=== PATIENT | female | born 1970 | race Caucasian/White ===

== ENCOUNTER 2016-09-06 07:51 | Emergency (ER) | payer MEDICAID, OTHER ==
--- NOTE | 2016-09-06 08:36 | UC ---
Respiratory Complaint HPI - HPI Summary HPI Summary: COUGH X 1 DAY + BODY ACHES, FATIGUE, FEVER, CHILLS, MILD NASAL CONGESTION , NO SORE THROAT - History of Current Complaint Chief Complaint: UCRespiratory Stated Complaint: COUGH, HEADACHE Time Seen by Provider: 09/06/16 08:04 Hx Obtained From: Patient Hx Last Menstrual Period: 09/03/16 Onset/Duration: Gradual Onset, Lasting Days - 1, Still Present Timing: Constant Severity Initially: Moderate Severity Currently: Moderate Character: Cough: Nonproductive Aggravating Factors: Exertion, Deep Breaths Alleviating Factors: Nothing Associated Signs And Symptoms: Positive: Fever, Chills, Nasal Congestion. Negative: Dyspnea, Pleuritic Chest Pain, Wheezing, Hemoptysis, Dizziness, Calf Pain, Calf Swelling, Edema, URI, Hoarseness, Sinus Discomfort - Allergies/Home Medications Allergies/Adverse Reactions: Allergies Allergy/AdvReac Type Severity Reaction Status Date / Time Theophylline [From [facility]] Allergy Intermediate LIPS, Verified 09/06/16 08:16 NOSE, FINGERS GET TINGLY. LOW BP Home Medications: Home Medications [id number] [Night Time Multi-Symptom] 1 cap PO PRN 09/06/16 [History] PMH/Surg Hx/FS Hx/Imm Hx Previously Healthy: Yes - Surgical History Surgical History: Yes Surgery Procedure, Year, and Place: BUNIONECTOMY. TUBES EARS - Family History Known Family History: Negative: Cardiac Disease, Hypertension, Diabetes - Social History Alcohol Use: Weekly Substance Use Type: None Smoking Status (MU): Former Smoker When Did the Patient Quit Smoking/Using Tobacco: 2009 - Immunization History Most Recent Tetanus Shot: 2014 Review of Systems Constitutional: Fever, Chills, Fatigue Skin: Negative Eyes: Negative ENT: Negative Respiratory: Cough Cardiovascular: Negative Gastrointestinal: Negative Genitourinary: Negative All Other Systems Reviewed And Are Negative: Yes Physical Exam Triage Information Reviewed: Yes Appearance: Well-Appearing, No Pain Distress, Well-Nourished Vital Signs: Initial Vital Signs Temp 100.2 F 09/06/16 08:18 Pulse 70 09/06/16 08:18 Resp 16 09/06/16 08:18 Pulse Ox 99 09/06/16 08:18 Vital Signs Reviewed: Yes Eye Exam: Normal Eyes: Positive: Conjunctiva Clear ENT: Positive: Normal ENT inspection, Hearing grossly normal, Pharynx normal, Nasal congestion, TMs normal. Negative: Pharyngeal erythema, Nasal drainage Neck: Positive: Supple, Nontender, No Lymphadenopathy Respiratory: Positive: Chest non-tender, Lungs clear, Normal breath sounds Cardiovascular: Positive: RRR, No Murmur, Pulses Normal Abdominal Exam: Normal Abdomen Description: Positive: Nontender, Soft. Negative: CVA Tenderness (R), CVA Tenderness (L), Distended, Guarding Bowel Sounds: Positive: Present Skin Exam: Normal UC Diagnostic Evaluation - Laboratory O2 Sat by Pulse Oximetry: 99 Respiratory Course/Dx - Differential Dx/Diagnosis Provider Diagnoses: VIRAL ILLNESS Discharge - Discharge Plan Condition: Stable Disposition: HOME Patient Education Materials: Viral Syndrome (ED) Forms: *Work Release Referrals: Lacey Montelongo MD [Primary Care Provider] - If Needed
== END 2016-09-06 08:44 | disposition home or self-care (01) ==
LOC: UCCORT 07:51
DX: B34.9 Viral infection, unspecified (principal); Z87.891 Personal history of nicotine dependence
CPT/HCPCS: 99211; G0463

== ENCOUNTER 2017-02-09 09:45 | Emergency (ER) | payer OTHER ==
[2017-02-09 12:30] VITALS: BP 120/68
--- NOTE | 2017-02-09 13:06 | UC ---
Throat Pain/Nasal Ricardo HPI - HPI Summary HPI Summary: Patient has dry scratchy throat. denies pain or fever, does have a dry house where the radiator is running all the time, has year round allergies. - History of Current Complaint Chief Complaint: UCRespiratory Stated Complaint: SORE THROAT, CONGESTION Time Seen by Provider: 02/09/17 12:24 Hx Obtained From: Patient Hx Last Menstrual Period: 01/22/19 ?: No Onset/Duration: Sudden Onset, Lasting Days Severity: Mild Associated Signs & Symptoms: Positive: Dysphagia - Allergies/Home Medications Allergies/Adverse Reactions: Allergies Allergy/AdvReac Type Severity Reaction Status Date / Time Theophylline [From [facility]] Allergy Intermediate LIPS, Verified 02/09/17 12:30 NOSE, FINGERS GET TINGLY. LOW BP Home Medications: Home Medications Cetirizine HCl [Allergy 24Hour Indoor/Out] 10 mg PO DAILY 02/09/17 [History Confirmed 02/09/17] Fluticasone Propionate (Nasal) [Allergy Relief] 2 spray BOTH NARES DAILY [History Confirmed 02/09/17] Krill Oil [Gnp Krill Oil [place]-3 300 mg] 1 cap PO DAILY 02/09/17 [History Confirmed 02/09/17] PMH/Surg Hx/FS Hx/Imm Hx Previously Healthy: Yes - Surgical History Surgical History: Yes Surgery Procedure, Year, and Place: BUNIONECTOMY. TUBES EARS - Family History Known Family History: Negative: Cardiac Disease, Hypertension, Diabetes - Social History Alcohol Use: Weekly Substance Use Type: None Smoking Status (MU): Former Smoker Length of Time of Smoking/Using Tobacco: smoked for 22 yrs Have You Smoked in the Last Year: No When Did the Patient Quit Smoking/Using Tobacco: 2009 - Immunization History Most Recent Tetanus Shot: 2014 Review of Systems Constitutional: Negative Skin: Negative Eyes: Negative ENT: Sore Throat Respiratory: Negative Cardiovascular: Negative Gastrointestinal: Negative Genitourinary: Negative Motor: Negative Neurovascular: Negative Musculoskeletal: Negative Neurological: Negative Psychological: Negative Is Patient Immunocompromised?: No All Other Systems Reviewed And Are Negative: Yes Physical Exam Triage Information Reviewed: Yes Appearance: Well-Appearing, Well-Nourished, Pain Distress Vital Signs: Initial Vital Signs Temp 98.7 F 02/09/17 12:22 Pulse 73 02/09/17 12:22 Resp 14 02/09/17 12:22 BP 120/68 02/09/17 12:22 Pulse Ox 100 02/09/17 12:22 Vital Signs Reviewed: Yes Eye Exam: Normal ENT: Positive: Pharyngeal erythema Dental Exam: Normal Neck exam: Normal Respiratory Exam: Normal Cardiovascular Exam: Normal Abdominal Exam: Normal Bowel Sounds: Positive: Present Musculoskeletal Exam: Normal Neurological Exam: Normal Psychological Exam: Normal Skin Exam: Normal Throat Pain/Nasal Course/Dx - Course Course Of Treatment: hx obtained, exam performed ,meds reviewed, strep run, patient states she is very bad at fluid intake, is often constipated andskin is dry, educated on proper hydration. - Differential Dx/Diagnosis Differential Diagnosis/HQI/PQRI: Otitis Media, Pharyngitis, Sinusitis Provider Diagnoses: pharyngitis. dehydration Discharge - Discharge Plan Condition: Stable Disposition: HOME Patient Education Materials: Pharyngitis (ED) Referrals: Lacey Montelongo MD [Medical Doctor] - Additional Instructions: 1. your strep test was neg 2. I highly recommend increasing your fluid intake, aim for 1/2 your body weight in fluid daily. 3. Steam shower to loosen the sinuses. 4. FOllow up with any increase in symtpoms.
== END 2017-02-09 13:26 | disposition home or self-care (01) ==
LOC: UCCORT 09:45
DX: J02.9 Acute pharyngitis, unspecified (principal); E86.0 Dehydration; Z87.891 Personal history of nicotine dependence
CPT/HCPCS: 87651; 99212; G0463